=== PATIENT | female | born 1955 | race Caucasian/White ===

== ENCOUNTER → 2019-06-08 | Emergency (ER) | payer OTHER ==
[~2019-06-08] VITALS: Ht 160 cm; Wt 80.3 kg
[~2019-06-08] MED LIST: ALLEGRA ALLERG180 MG; ZANTAC150 M3; ZYRTEC10 MG
== END | disposition left against medical advice (07) ==
LOC: ER 04:21
DX: Z53.20 Procedure and treatment not carried out because of patient's decision for unspecified reasons (principal)